=== PATIENT | male | born 1960 | race Caucasian/White ===

== ENCOUNTER → 2017-08-20 | Outpatient (CLI) | payer BC ==
--- NOTE | 2017-08-23 16:46 | PN ---
PROGRESS NOTE This is a 54-year-old male patient coming to see me in followup regarding his obstructive sleep apnea. The patient is obese and he is status post UPPP. He continues to have severe symptomatic ISABELLA with an AHI of 81, and currently he is on a BiPAP pressure of 24/20 cm of water. He has been utilizing his CPAP. His compliancy was checked. Overall he is quite stable, although he needs to increase his compliancy and put more hours on his BiPAP use every night. No chest pain. No major hypersomnia or sleepiness during the day. VITALS: BP is 117/73, pulse 88, respiration 16. GENERAL APPEARANCE: Calm, comfortable, obese. Head is atraumatic, normocephalic. Post UPPP. LUNGS: Clear to auscultation. Heart sounds are regular rate and rhythm. Normal S1, S2. No S3, S4. No murmurs. Abdomen is soft, nontender. No organomegaly. EXTREMITIES: No edema. No cyanosis or clubbing. SKIN: No cellulitis or ulceration. IMPRESSION: 1. Severe symptomatic obstructive sleep apnea, post UPPP, currently on BiPAP 24/20. 2. Severe nocturnal oxygen desaturations. 3. Periodic limb movements. 4. Chronic hypersomnia. PLAN: 1. Continue BiPAP therapy. 2. Renew CPAP supplies. 3. Will follow. MMGOL / CHITRAN: [id number] /
== END | disposition home or self-care (01) ==
LOC: SLEEP 14:16
PROVIDERS: ATTEND Internal Medicine Critical Care Medicine
DX: G47.33 Obstructive sleep apnea (adult) (pediatric) (principal); G47.61 Periodic limb movement disorder; G47.10 Hypersomnia, unspecified; Z99.89 Dependence on other enabling machines and devices; Z99.81 Dependence on supplemental oxygen
CPT/HCPCS: 99211

== ENCOUNTER → 2018-10-30 | Outpatient (CLI) | payer BC ==
--- NOTE | 2018-10-30 13:20 | US ---
EXAMINATION TYPE: US liver DATE OF EXAM: 10/30/2018 COMPARISON: 09/20/2010 CLINICAL HISTORY: R74.8 Abnormal Levels of Serum Enzymes. EXAM MEASUREMENTS: Liver Length: 16.2 cm Gallbladder Wall: 0.3cm CBD: 0.3 cm Right Kidney: 12.6 x 4.7 x 5.7 cm Patient of large body habitus. Technically difficult and somewhat limited study. Pancreas: Obscured by bowel gas Liver: Increased attenuation, decreased visualization of vessels suggestive of fatty infiltrate, jayesh e probable focal fatty sparing adjacent to gallbladder. The previously seen hepatic cyst on the exam of 2010 is not visualized. Gallbladder: cholelithiasis Evidence for sonographic Donnelly's sign:no CBD: wnl Right Kidney: Upper limits of normal in size. IMPRESSION: 1. Cholelithiasis without sonographic evidence of acute cholecystitis. 2. Sonographic findings most suggestive of hepatic steatosis appearing moderate in degree with probab le focal fatty sparing near the gallbladder fossa. Correlate with liver function tests results. 3. Obscuration of the pancreas by bowel gas.
== END | disposition home or self-care (01) ==
LOC: RADUSWWP 12:37
PROVIDERS: ATTEND Family Medicine
DX: K80.20 Calculus of gallbladder without cholecystitis without obstruction (principal)
CPT/HCPCS: 76705

== ENCOUNTER → 2022-02-23 | Outpatient (CLI) | payer BC ==
[2022-02-23 14:51] LABS: HCT 46.9 % (39.6-50.0); HGB 15.7 g/dL (13.0-17.0); MCH 29.3 pg (27.0-32.0); MCHC 33.5 g/dL (32.0-37.0); MCV 87.7 fL (80.0-97.0); Mean Platelet Volume 11.5 fL (9.5-12.2); NRBC Per 100 WBC 0 /100 WBCS (0.0-0.0); Platelet Count 144 X 10*3/uL (140-440); RBC 5.35 X 10*6/uL (4.40-5.60); RDW 12.8 % (11.5-14.5); WBC 6.34 X 10*3/uL (4.50-10.00)
[2022-02-23 16:28] LABS: ALT 65 U/L (10-49); AST 44 U/L (14-35); African American GFR (CKD) 95.2 (60.0-200.0); Albumin 4.2 g/dL (3.8-4.9); Albumin/Globulin Ratio 1.54 (1.60-3.17); Alkaline Phosphatase 86 U/L (41-126); BUN/Creat Ratio 15.81 Ratio (12.00-20.00); Blood Urea Nitrogen 15.6 mg/dL (9.0-27.0); Calcium 9.2 mg/dL (8.7-10.3); Carbon Dioxide 29.5 mmol/L (20.0-27.5); Chloride 102 mmol/L (96-109); Chol/HDL Ratio 2.72 Ratio; Globulin 2.7 g/dL (1.6-3.3); Glucose 116 mg/dL (70-110); LDL Cholesterol,Calculated 94.9 mg/dL (0.0-131.0); Non-African American GFR(CKD) 82.2 (60.0-200.0); Potassium 5.2 mmol/L (3.5-5.5); Sodium 139 mmol/L (135-145); Total Protein 6.9 g/dL (6.2-8.2); VLDL Calculation 14.52 mg/dL (5.00-40.00)
[2022-02-23 23:25] LABS: Appearance,Urine Clear (Clear); Bilirubin,Urine Negative (Negative); Blood,Urine Negative (Negative); Color,Urine Yellow (Yellow); Ketones,Urine Negative (Negative); Nitrite,Urine Negative (Negative); PH, Urine 7.5 (5.0-8.0); Specific Gravity,Urine 1.023 (1.001-1.030)
== END | disposition home or self-care (01) ==
LOC: LABWHC1 09:32
PROVIDERS: ATTEND Family Medicine
DX: Z00.00 Encounter for general adult medical examination without abnormal findings (principal); E66.01 Morbid (severe) obesity due to excess calories
CPT/HCPCS: 36415; 80053; 80061; 81003; 83036; 84153; 85027

== ENCOUNTER → 2022-12-18 | Outpatient (CLI) | payer BC ==
[2022-12-18 17:52] LABS: ALT 74 U/L (10-49); AST 48 U/L (14-35)
== END | disposition home or self-care (01) ==
LOC: LABWHC1 10:29
PROVIDERS: ATTEND Family Medicine
DX: K76.0 Fatty (change of) liver, not elsewhere classified (principal); R73.03 Prediabetes
CPT/HCPCS: 36415; 83036; 84450; 84460

== ENCOUNTER → 2023-06-17 | Outpatient (CLI) | payer BC ==
[2023-06-17 14:59] LABS: HCT 46.8 % (39.6-50.0); HGB 15.8 g/dL (13.0-17.0); MCH 29.6 pg (27.0-32.0); MCHC 33.8 g/dL (32.0-37.0); MCV 87.8 FL (80.0-97.0); Mean Platelet Volume 12.1 FL (9.5-12.2); NRBC Per 100 WBC 0 X 10*3/uL (0.00-0.01); Platelet Count 133 X 10*3/uL (140-440); RBC 5.33 X 10*6/uL (4.40-5.60); RDW 12.8 % (11.5-14.5); WBC 7.01 X 10*3/uL (4.50-10.00)
[2023-06-17 15:35] LABS: BUN/Creat Ratio 17.56 Ratio (12.00-20.00); Blood Urea Nitrogen 15.8 mg/dL (9.0-27.0); Chloride 102 mmol/L (96-109); Chol/HDL Ratio 3.34 Ratio; Glucose 106 mg/dL (70-110); LDL Cholesterol,Calculated 114.4 mg/dL (0.0-131.0); Potassium 4.8 mmol/L (3.5-5.5); Sodium 140 mmol/L (135-145); VLDL Calculation 18.72 mg/dL (5.00-40.00)
[2023-06-17 15:36] LABS: ALT 85 U/L (10-49); AST 58 U/L (14-35); Albumin 4.2 g/dL (3.8-4.9); Alkaline Phosphatase 84 U/L (41-126); Calcium 9.2 mg/dL (8.7-10.3); Prostate Specific Antigen 0.23 ng/mL (0.000-4.500); Total Bilirubin 0.4 mg/dL (0.3-1.2); Total Protein 7.2 g/dL (6.2-8.2)
[2023-06-17 16:17] LABS: Appearance,Urine Clear (Clear); Bilirubin,Urine Negative (Negative); Blood,Urine Negative (Negative); Color,Urine Yellow (Yellow); Ketones,Urine Negative (Negative); Nitrite,Urine Negative (Negative); PH, Urine 5.5; Specific Gravity,Urine 1.021 (1.001-1.030)
== END | disposition home or self-care (01) ==
LOC: LABWHC1 10:33
PROVIDERS: ATTEND Family Medicine
DX: Z00.00 Encounter for general adult medical examination without abnormal findings (principal)
CPT/HCPCS: 36415; 80053; 80061; 81003; 84153; 85027

== ENCOUNTER → 2024-06-04 | Outpatient (CLI) | payer BC ==
[2024-06-04 16:00] LABS: HCT 46.8 % (39.6-50.0); HGB 15.1 g/dL (13.0-17.0); MCH 28.5 pg (27.0-32.0); MCHC 32.3 g/dL (32.0-37.0); MCV 88.3 FL (80.0-97.0); Mean Platelet Volume 11.7 FL (9.5-12.2); NRBC Per 100 WBC 0 X 10*3/uL (0.00-0.01); Platelet Count 150 X 10*3/uL (140-440); RDW 13.1 % (11.5-14.5); WBC 6.73 X 10*3/uL (4.50-10.00)
[2024-06-04 16:34] LABS: ALT 71 U/L (10-49); AST 55 U/L (14-35); Albumin 4.1 g/dL (3.8-4.9); Albumin/Globulin Ratio 1.46 Ratio (1.60-3.17); Alkaline Phosphatase 81 U/L (41-126); Blood Urea Nitrogen 13.2 mg/dL (9.0-27.0); Calcium 8.9 mg/dL (8.7-10.3); Chloride 103 mmol/L (96-109); Chol/HDL Ratio 2.94 Ratio; Globulin 2.8 g/dL (1.6-3.3); Glucose 110 mg/dL (70-110); LDL Cholesterol,Calculated 99.4 mg/dL (0.0-131.0); Potassium 4.5 mmol/L (3.5-5.5); Prostate Specific Antigen 0.39 ng/mL (0.000-4.500); Sodium 138 mmol/L (135-145); Total Bilirubin 0.4 mg/dL (0.3-1.2); Total Protein 6.9 g/dL (6.2-8.2)
[2024-06-04 16:39] LABS: Appearance,Urine Clear (Clear); Bilirubin,Urine Negative (Negative); Blood,Urine Negative (Negative); Color,Urine Yellow (Yellow); Ketones,Urine Trace (Negative); Nitrite,Urine Negative (Negative); PH, Urine 5.5; Specific Gravity,Urine 1.026 (1.001-1.030)
== END | disposition home or self-care (01) ==
LOC: LABWHC1 09:00
PROVIDERS: ATTEND Family Medicine
DX: Z00.00 Encounter for general adult medical examination without abnormal findings (principal)
CPT/HCPCS: 36415; 80053; 80061; 81003; 82306; 83036; 84153; 84443; 85027

== ENCOUNTER 2024-06-16 09:46 | Day surgery (SDC) | payer BC ==
[2024-06-08 14:29] VITALS: BMI 43.0
[~2024-06-16 09:46] MED LIST: LACTATED RINGERS 1,000 ML IV SCH; LIDOCAINE 1% (10MG/ML) FOR IV START INTRADERMA PRN
[2024-06-16] MEDS: SODIUM CHLORIDE 0.9% 1,000 ML IV ONE (10:49)
[2024-06-16 11:03] VITALS: TEMP 97
[2024-06-16] MEDS ORDERED: PROPOFOL 10 MG/ML 20 ML VIAL IV ONE (11:30)
--- NOTE | 2024-06-16 11:30 | P.GSHP ---
History of Present Illness H&P Date: 06/16/24 Chief Complaint: Colon cancer screening 63-year-old male here for colonoscopy. Last colonoscopy 10 years ago. No bowel complaints. No history of polyps. Past Medical History Past Medical History: GERD/Reflux, Hypertension, Sleep Apnea/CPAP/BIPAP Additional Past Medical History / Comment(s): UNABLE TO USE CPAP MASK. SINUS PROBLEMS, SNORING. OCC EDEMA FEET. SL VARICOSE VEINS. History of Any Multi-Drug Resistant Organisms: None Reported Past Surgical History: Adenoidectomy, Back Surgery, Tonsillectomy Additional Past Surgical History / Comment(s): SINUS SURG 1997. COLONSCOPY, EGD. Past Anesthesia/Blood Transfusion Reactions: Previous Problems w/ Anesthesia Additional Past Anesthesia/Blood Transfusion Reaction / Comment(s): POSSIBLE HX OF ANESTHESIA REACTION IN 2001, DEVELOPED RASH, UNSURE OF ALLERGEN. CLAUSTROPHOBIC W/ MASKS FOR SLEEP APNEA. Smoking Status: Never smoker - Past Family History Father Family Medical History: Cancer Additional Family Medical History / Comment(s): prostate Sister(s) Family Medical History: Deep Vein Thrombosis (DVT) Medications and Allergies Home Medications Medication Instructions Recorded Confirmed Type Omeprazole 40 mg PO DAILY 06/08/24 06/16/24 History amLODIPine [Norvasc] 5 mg PO DAILY 06/08/24 06/16/24 History Allergies Allergy/AdvReac Type Severity Reaction Status Date / Time No Known Allergies Allergy Verified 06/16/24 11:03 Surgical - Exam Vital Signs Temp Pulse Resp BP Pulse Ox 97.0 F L 64 18 172/81 96 06/16/24 10:59 06/16/24 10:59 06/16/24 10:59 06/16/24 10:59 06/16/24 10:59 Physical exam: General: Well-developed, well-nourished HEENT: Normocephalic, sclerae nonicteric Abdomen: Nontender, nondistended Extremities: No edema Neuro: Alert and oriented Assessment and Plan (1) Colon cancer screening Narrative/Plan: Will proceed with colonoscopy at this time. Current Visit: Yes Status: Acute Code(s): Z12.11 - ENCOUNTER FOR SCREENING FOR MALIGNANT NEOPLASM OF COLON SNOMED Code(s): 180451689
--- NOTE | 2024-06-16 11:51 | P.PCN ---
Date of Procedure: 06/16/24 Procedure(s) Performed: PREOPERATIVE DIAGNOSIS: Colon cancer screening POSTOPERATIVE DIAGNOSIS: Colon polyps, diverticulosis PROCEDURE: Colonoscopy with snare polypectomy ANESTHESIA: MAC SURGEON: Jacky Benson M.D. SPECIMENS: Polyps ENDOSCOPIC PROCEDURE: The patient was placed on the endoscopy table in the left decubitus position. The Olympus colonoscope was inserted into the anus and passed under direct visualization to the base of the cecum. The appendiceal orifice was visualized. From that point the scope was slowly withdrawn inspecting all surfaces carefully. There were no neoplastic inflammatory or polypoid lesions throughout the cecum or ascending colon. In the transverse colon 2 small polyps were seen and removed using the snare with cautery technique. In the descending colon an additional small polyp was noted and removed in a similar fashion. In the sigmoid colon there were 2 polyps both removed using the snare with cautery technique. The rectum was normal. The patient had mild left-sided diverticulosis. Digital rectal examination was normal. The patient was taken to the recovery room in stable condition per anesthesia guidelines. RECOMMENDATIONS: Await biopsy results. Will contact patient with timing of the next colonoscopy
[2024-06-16 12:23] VITALS: BP 152/82; PULSE 52; RESP 16
== END 2024-06-16 12:44 | disposition home or self-care (01) ==
LOC: ORWHC2ENDO 09:46
PROVIDERS: ATTEND Surgery
DX: Z12.11 Encounter for screening for malignant neoplasm of colon (principal); D12.5 Benign neoplasm of sigmoid colon; D12.4 Benign neoplasm of descending colon; D12.3 Benign neoplasm of transverse colon; K57.30 Diverticulosis of large intestine without perforation or abscess without bleeding; K21.9 Gastro-esophageal reflux disease without esophagitis; I10 Essential (primary) hypertension; F40.240 Claustrophobia; E66.01 Morbid (severe) obesity due to excess calories; Z99.89 Dependence on other enabling machines and devices; Z68.31 Body mass index [BMI] 31.0-31.9, adult; Z90.89 Acquired absence of other organs; Z79.899 Other long term (current) drug therapy
CPT/HCPCS: 88305; 45385; J2704

== ENCOUNTER → 2024-06-24 | Outpatient (CLI) | payer BC ==
[2024-06-25 02:13] LABS: Basophils # (A) 0.07 X 10*3/uL (0.00-0.10); Basophils % (A) 0.8 %; Eosinophils # (A) 0.18 X 10*3/uL (0.04-0.35); HCT 49.2 % (39.6-50.0); HGB 16.1 g/dL (13.0-17.0); Lymphocytes # (A) 1.91 X 10*3/uL (0.90-5.00); Lymphocytes % (A) 21.7 %; MCH 28.8 pg (27.0-32.0); MCHC 32.7 g/dL (32.0-37.0); MCV 87.9 FL (80.0-97.0); Mean Platelet Volume 11.9 FL (9.5-12.2); Monocytes # (A) 0.75 X 10*3/uL (0.20-1.00); Monocytes % (A) 8.5 %; NRBC Per 100 WBC 0 X 10*3/uL (0.00-0.01); Neutrophils # (A) 5.85 X 10*3/uL (1.80-7.70); Neutrophils % (A) 66.7 %; Platelet Count 164 X 10*3/uL (140-440); RDW 13.1 % (11.5-14.5); WBC 8.79 X 10*3/uL (4.50-10.00)
== END | disposition home or self-care (01) ==
LOC: LABWHC1 16:20
PROVIDERS: ATTEND Surgery
DX: K92.2 Gastrointestinal hemorrhage, unspecified (principal)
CPT/HCPCS: 36415; 85025

== ENCOUNTER → 2024-12-18 | Outpatient (CLI) | payer BC ==
--- NOTE | 2024-12-18 12:51 | XR ---
EXAMINATION TYPE: XR cervical spine limited DATE OF EXAM: 12/18/2024 12:35 PM COMPARISON: None CLINICAL INDICATION: Male, 64 years old with history of R51.9 Headache; PHH, pain TECHNIQUE: XR cervical spine limited, (1-2) views of the cervical spine FINDINGS: The osseous structures show normal alignment without evidence of an acute fracture. There are osteoph ytes noted throughout the cervical spine on the anterior and lateral aspects of the vertebral bodies. The intervertebral disk spaces are narrowed at multiple levels Pedicles are intact. Soft tissues ar e within normal limits. The odontoid appears intact. IMPRESSION: 1. No fracture or dislocation. 2. Mild degenerative disc disease changes of the cervical spine. [facility], , 12/18/2024 12:49 PM
[2024-12-18 18:57] LABS: Basophils # (A) 0.05 X 10*3/uL (0.00-0.10); Basophils % (A) 0.7 %; Eosinophils # (A) 0.13 X 10*3/uL (0.04-0.35); Eosinophils % (A) 1.8 %; HCT 45.5 % (39.6-50.0); HGB 14.7 g/dL (13.0-17.0); Immature Grans, Automated 0.40 %; Lymphocytes # (A) 1.38 X 10*3/uL (0.90-5.00); Lymphocytes % (A) 19.0 %; MCH 28.9 pg (27.0-32.0); MCHC 32.3 g/dL (32.0-37.0); MCV 89.4 FL (80.0-97.0); Monocytes # (A) 0.50 X 10*3/uL (0.20-1.00); Monocytes % (A) 6.9 %; NRBC Per 100 WBC 0 X 10*3/uL (0.00-0.01); Neutrophils # (A) 5.16 X 10*3/uL (1.80-7.70); Neutrophils % (A) 71.2 %; Platelet Count 142 X 10*3/uL (140-440); RBC 5.09 X 10*6/uL (4.40-5.60); RDW 12.8 % (11.5-14.5); WBC 7.25 X 10*3/uL (4.50-10.00)
[2024-12-18 19:14] LABS: ALT 58 U/L (10-49); AST 47 U/L (14-35); Albumin 4.3 g/dL (3.8-4.9); Albumin/Globulin Ratio 1.59 Ratio (1.60-3.17); Alkaline Phosphatase 71 U/L (41-126); Anion Gap 9.20 mmol/L (4.00-12.00); BUN/Creat Ratio 19.11 Ratio (12.00-20.00); Blood Urea Nitrogen 17.2 mg/dL (9.0-27.0); Calcium 9.3 mg/dL (8.7-10.3); Carbon Dioxide 27.8 mmol/L (21.6-31.8); Chloride 103 mmol/L (96-109); Globulin 2.7 g/dL (1.6-3.3); Glucose 106 mg/dL (70-110); Potassium 5.1 mmol/L (3.5-5.5); Sodium 140 mmol/L (135-145); Total Protein 7.0 g/dL (6.2-8.2)
== END | disposition home or self-care (01) ==
LOC: RADXRMAIN 12:12
PROVIDERS: ATTEND Family Medicine
DX: M50.30 Other cervical disc degeneration, unspecified cervical region (principal)
CPT/HCPCS: 72040; 80053; 85025; 85652; 86140